=== PATIENT | female | born 1945 | race Caucasian/White ===

== ENCOUNTER → 2017-08-01 | Outpatient (CLI) | payer OTHER ==
[~2017-08-01] MED LIST: ANASTROZOLE1 MG PO; ARIMIDEX1 MG PO; ASA5UEC; ASPIR 8181 MG PO; ASPIRIN325 PO; AUGMENTIN 875875 MG PO; BRILINTA90 MG PO; CEFDINIR300 MG PO; CENTRUM SILVER1 EAC1 PO; CLEOCIN HCL300 MG PO; CRESTOR5 MG PO; DOXYCYCLINE 10100 M1 PO; FOSINOPRIL SODI40 M1 PO; HYDROCODON-ACE1 EAC7 PO; HYOSCYAMINE0.375 M2 PO; IMDUR 30 MG TAB30 M1 PO; LIMBITROL DS T1 EACH PO; LISINOPRIL10 MG PO; LISINOPRIL20 MG PO; LORTAB PO; MACROBID; MACROBID 100 M100 M1 PO; METAMUCIL FIBE3.4 GM PO; METAMUCIL197.2 GM PO; MIRALAX255 GM PO; NIACIN 500 MG500 M1 PO; NIASPAN 500 MG500 M1 PO; NORCO 5-325 TA1 EACH PO; OMEGA-31000 MG PO; PLAVIX 75 MG TA75 M1 PO; SYNTHROID50 MCG PO; TOPROL XL50 MG PO; ULTRAM 50MG TAB50 MG PO; VIGAMOX3 M1 OP; XANAX 0.25 MG0.25 MG PO; ZOFRAN4 MG PO
== END ==
LOC: RAD 10:15
DX: Z12.31 Encounter for screening mammogram for malignant neoplasm of breast (principal); M85.88 Other specified disorders of bone density and structure, other site; E28.39 Other primary ovarian failure; Z78.0 Asymptomatic menopausal state

== ENCOUNTER 2018-04-18 11:41 | Inpatient (IN) | payer OTHER ==
[2018-04-18] VITALS (9 sets, daily range): BP systolic 101–119; BP diastolic 69–81
[~2018-04-18] VITALS: Ht 167.6 cm; Wt 69.9 kg
--- NOTE | ~2018-04-18 | CATHLAB ---
[facility] [address] [place] [address] INVASIVE PROCEDURE REPORT Name: J CARLOS FIGUEROA Room #: 208-P [facility] IN [facility]#: [id number] Admission: 04/18/18 Attend Phys: Rodolfo Arnold, Discharge: Date of : 49 Date of Service: 04/18/18 1715 Report #: [id number] THIS REPORT FOR: //name// APPROVED REPORT Study performed: 04/18/2018 11:52:32 Patient Details Patient Status: In-Patient Room #: The patient is a 73 year-old female Event Personnel Rodolfo Arnold Principal Administrative Clerk, Dayana Armijo, Lashay Mccord RTR, Sony Castro Ceola RN lens matcher Performed Art Access - R femoral artery* 20531 Initial Mod Sed Same Phys/QHP Gr5y [id number] 06392 Mod Sed Same Phys/QHP Ea 725892 Left Heart Cath Coronaries, Bypass Grafts 0956177 LHCCORCABG ULI Place w/wo Plasty Single LAD 704535 Hemostasis w/ Mynx Indication Chest pain Procedure Narrative The patient was brought urgently to the Cardiac Catheterization Laboratory and was prepped and draped in a sterile manner. The Right Groin^ was infiltrated with 1% Lidocaine subcutaneous anesthesia. A PINNACLE 6FR Sheath #[id number] sheath was inserted into the RFA^. Coronary angiography was performed using coronary diagnostic catheters. The right coronary system was accessed and visualized with a JR 4 catheter. The left coronary system was accessed and visualized with a JL 4 catheter. The left ventricle was accessed and visualized with a Pigtail catheter. Left ventricular/Aortic Valve gradient assessed via catheter pullback. Left ventriculogram was performed in TONEY projection. Closure device was deployed with a 6 Fr Mynx. The patient tolerated the procedure well and there were no complications associated with the procedure. There was no hematoma. Intraoperative Conscious Sedation Sedation start time: 11:56 Case end Time: 13:14 Fentanyl 50 mcg Versed 2 mg Fluoro Time: 16.[address] [address] INVASIVE PROCEDURE REPORT Name: J CARLOS FIGUEROA [facility] Room #: 208-P [facility]#: [id number] Admission: 04/18/18 Attend Phys: Rodolfo Arnold, Discharge: Date of : 49 Date of Service: 04/18/18 1715 Report #: [id number] Dose: DAP 56211.00 cGycm2 1975 mGy Contrast Type and Amount: Visipaque 220 ml Coronary Angiography The patient's coronary anatomy is right dominant. Diagnostic Cath Left Main Normal left main LAD Severe 95% proximal LAD stenosis 85% mid LAD just after small to moderate size second diagonal branch Failed left internal mammary to the LAD Diagonal 1 Severe ostial D1 stenosis. Competitive filling was seen in the midportion of this vessel from a patent radial graft Patent radial artery from aorta to the first diagonal branch. Radial artery stent, osteal widely patent Diagonal 2 Small second diagonal branch, angiographically normal Circumflex Nondominant but large circumflex comprised of a single marginal branch Mild 10-20% ostial circumflex plaquing OM1 Minimal proximal OM1 plaquing Right Coronary The right coronary was large, dominant, and angiographically normal R PDA Large, normal posterior descending branch RPLV Moderate in size, angiographically normal posterior lateral branch Left Ventriculography The left ventricle is mildly dilated in size with abnormal contractility. The left ventricular ejection fraction is estimated to be 35%. Left ventricular wall motion abnormalities are present. There is no mitral insufficiency. Extensive anterolateral, apical, and inferoapical hypokinesis with left ventricular enlargement. Elevated left heart pressures. Hemodynamics The aortic pressure is 179/94 mmHg with a mean of 136 mmHg. The left ventricular pressure is 172/ mmHg with a mean of mmHg. The left ventricular end diastolic pressure is 26 mmHg. There was no gradient across the aortic valve upon pullback. PCI Technique Lesion Anticoagulation was achieved with Heparin, Integrilin. Patient was preloaded with Brillinta. Percutaneous coronary intervention was performed on the proximal left anterior descending artery segment. [facility] [address] [place] [address] INVASIVE PROCEDURE REPORT Name: J CARLOS FIGUEROA Room #: 208-P [facility] IN M.R.#: [id number] Admission: 04/18/18 Attend Phys: Rodolfo Arnold, Discharge: Date of : 49 Date of Service: 04/18/18 1715 Report #: [id number] The lesion stenosis prior to intervention was 95% with JEOVANNY 2 flow. A LAUNCHER 6FR EBU 3.5 #[id number] Guide Catheter was used to engage the left main ostium. A Luge Wire .014 x 182CM #[id number] Interventional Guidewire was used to cross the lesion. BALLOON DILATION A Balloon catheter Euphora RX 2.25 x 10 #[id number] was inserted and inflated up to 12.00atm for 35seconds. Repeat angiography revealed the following post-dilatation results: moderate residual mid and proximal LAD stenosis. Additional Inflation: 17.00atm for 25seconds. Additional Inflation: 18.00atm for 40seconds. STENT DEPLOYMENT A drug-eluting stent RESOLUTE GREG RX 2.5 X 34 #[id number] was inserted and inflated up to 15.00atm for 35seconds. Repeat angiography revealed the following post-stent deployment results: 0% residual, JEOVANNY III flow. POST STENT DEPLOYMENT BALLOON DILATION A Balloon catheter TREK NC RX 2.5 X 15 #[id number] was inserted and inflated up to 20.00atm for 31seconds. Additional Inflation: 22.00atm for 37seconds. Additional Inflation: 22.00atm for 26seconds. Final angiography reveals 0 % stenosis with JEOVANNY 3 flow. Conclusion 1. Moderately severe left ventricular dysfunction with anterolateral, apical, and inferoapical hypokinesis EF 30-35% 2. Normal left main 3. Severe proximal to mid LAD disease treated with stenting (2.5 x 34mm Resolute) post-dilated to 2.7mm 4. Failed WILKINSON to LAD, patent radial graft to D1 5. Mild plaquing in non-dominant circumflex 6. Normal, dominant RCA Recommendations Cardiac Rehabilitation Referral Aggressive Medical Therapy Medications Administered SANYA Inhibitor (any) Aspirin (any) Beta Osvaldo (any) Statin (any) [facility] [address] [place] [address] INVASIVE PROCEDURE REPORT Name: J CARLOS FIGUEROA Room #: 208-P ADM IN M.R.#: [id number] Admission: 04/18/18 Attend Phys: Rodolfo Arnold, Discharge: Date of : 49 Date of Service: 04/18/181714 Report #: [id number] Ticagrelor Cardiac Rehabilitation Referral <ELECTRONICALLY SIGNED> By: Rodolfo Arnold MD, FACC 04/18/181714 14 14 Rodolfo Arnold MD, FACC /INF
--- NOTE | ~2018-04-18 | H ---
[facility] [place] [address] HISTORY AND PHYSICAL Name: J CARLOS FIGUEROA Room #: 208-P ADM IN M.R.#: [id number] Admission: 04/18/18 Attend Phys: Rodolfo Arnold MD, Discharge: Date of : 49 Report #: [id number] THIS REPORT FOR: //name// CC: Rodolfo Welch REASON FOR ADMISSION: Myocardial infarction. HISTORY OF PRESENT ILLNESS: The patient is a 73-year-old woman with a history of remote bypass (2004) with a left internal mammary to the LAD and a radial artery to the diagonal branch. In 2008, she underwent medicated stenting of the ostium of the radial graft with a Promise medicated stent. In the past several weeks, she has had intermittent chest discomfort. She was seen in our office today, at which time a stress echo was performed. Pre-stress images were normal. Immediately after getting off the treadmill, she experienced midsternal chest discomfort and marked anterolateral ST elevation. She developed nonsustained ischemic, paroxysmal VT, specific therapy of which was not required. She was treated with aspirin, heparin as paramedics were being summoned. She was taken to urgently do coronary angiography at [facility]. She has ongoing pain with mild shortness of breath. She denies orthopnea or paroxysmal nocturnal dyspnea. ALLERGIES: She is allergic to CODEINE, LEVAQUIN, SULFA MEDICATIONS: Include alprazolam, aspirin, Limbitrol 5/12.5 mg 1 tablet at bedtime, fish oil, Levbid 0.375 mg every 12 hours as needed for cramping, Imdur 30 mg daily, levothyroxine 50 mcg daily, lisinopril 40 mg daily, Toprol-XL 50 mg daily, Crestor 5 mg daily. PAST MEDICAL HISTORY: Notable for breast cancer for which she received left chest radiation and chemotherapy, cystocele repair, hysterectomy, rectocele repair. SOCIAL HISTORY: She has never been a smoker. . FAMILY HISTORY: Notable for premature coronary artery disease. REVIEW OF SYSTEMS: All systems negative except as that noted above. PHYSICAL EXAMINATION: GENERAL: Reveals a pleasant woman in moderate distress. VITAL SIGNS: Blood pressure is 140/70, heart rate of 90 and regular, respirations unlabored at 18. HEENT: There are neither xanthelasma, subcutaneous xanthomata, oral mucosal or digital cyanosis or kyphoscoliosis present. CHEST: Clear to auscultation and percussion. CARDIAC: Reveals regular rate and rhythm with a normal S1 and distant heart [address] [address] HISTORY AND PHYSICAL Name: J CARLOS FIGUEROAYE Room #: 208-P [facility] IN M.R.#: [id number] Admission: 04/18/18 Attend Phys: Rodolfo Arnold MD, Discharge: Date of : 49 Report #: [id number]. ABDOMEN: Soft and nontender. EXTREMITIES: Without cyanosis, clubbing or edema. Radial pulses are 2+. NEUROLOGIC: She is alert with a nonfocal exam. LABORATORY DATA: EKG sinus rhythm with high lateral injury pattern, frequent polymorphic ventricular ectopy. Sodium 141, potassium 3.9, creatinine 0.8, troponin 1.03. Hemoglobin 13.6, platelet count 182. IMPRESSION: 1. Acute anterolateral myocardial infarction. 2. Acute systolic heart failure. 3. Hypertension. 4. Paroxysmal, ischemic ventricular tachycardia. 5. Dyslipidemia. 6. Breast cancer with radiation therapy and chemotherapy remotely. 7. Carotid stenosis. RECOMMENDATIONS: 1. Coordinated care with EMS, Emergency Room and laborer/key man for urgent coronary angiography. This procedure was discussed in detail including its associated risks as well as the risks associated with a probable percutaneous intervention. Questions were answered. She is agreeable to proceeding. 2. No contraindications to dual antiplatelet therapy. Critical care time 11:05-12:07. <ELECTRONICALLY SIGNED> By: Rodolfo Arnold MD, FACC 04/19/18 0906 1403 1447 Rodolfo Arnold MD, FACC /nt
--- NOTE | ~2018-04-18 | D ---
[facility] [place] [address] DISCHARGE SUMMARY Name: J CARLOS FIGUEROA Room #: 208-P [facility] IN M.R.#: [id number] Admission: 04/18/18 Attend Phys: Rodolfo Arnold MD, Discharge: 04/20/18 Date of : 49 Report #: [id number] THIS REPORT FOR: //name// CC: Rodolfo Welch MD DISCHARGE DIAGNOSES: 1. Acute anterolateral myocardial infarction interrupted by stenting of the proximal left anterior descending artery (2.5 x 34 mm Resolute Homer stent). 2. Acute systolic heart failure. 3. Hypertension. 4. Paroxysmal, ischemic ventricular tachycardia. 5. Dyslipidemia. 6. Breast cancer with left chest radiation therapy and chemotherapy. 7. Carotid stenosis, asymptomatic. 8. Remote 2-vessel bypass with failed left internal mammary to the left anterior descending artery, patent radial artery to the diagonal branch. HISTORY OF PRESENT ILLNESS: For the complete details of the history of present illness, see dictated history and physical. Briefly, the patient is a 73-year-old woman with a history of remote 2-vessel bypass in 2004. During a stress test in our office, she developed anterolateral ST segment elevation and was taken urgently to coronary angiography. HOSPITAL COURSE: The patient was admitted and taken urgently to angiography, which demonstrated occlusion of the mammary graft to the LAD, severe proximal and mid LAD disease was present, which was stented with a 2.5 x 34 mm Resolute Homer stent postdilated to 2.7 mm. The mammary graft had an appearance that would suggest maybe radiation injury. In the infarct setting, she had nonsustained ischemic paroxysmal polymorphic ventricular tachycardia, specific therapy of which was not required. She had mild systolic heart failure with an elevated LVEDP of 35 mm. The peak troponin was 10.8. EKG demonstrated no acute ST or T-wave changes with early R-wave progression. Lipids were recently checked in our office with an LDL of 107, total cholesterol 200. She has been intolerant to several statins, although seems to be doing well with rosuvastatin. She was ambulating and pain free at the time of discharge. Discharge medicines were reconciled. DISCHARGE DIET: Heart healthy. DISCHARGE INSTRUCTIONS: Arrangements were made for outpatient cardiac rehabilitation. DISCHARGE MEDICATIONS: Aspirin 81 mg daily, Crestor 5 mg daily, levothyroxine 50 mcg daily, lisinopril 10 mg daily, Toprol-XL 50 mg daily, ticagrelor 90 mg twice daily, Xanax as needed, lisinopril [address] [address] DISCHARGE SUMMARY Name: JC ARLOS FIGUEROA Room #: 208-P [facility]..#: [id number] Admission: 04/18/18 Attend Phys: Rodolfo Arnold MD, Discharge: 04/20/18 Date of : 49 Report #: [id number] DISCHARGE ACTIVITIES: As instructed. DISCHARGE CONDITION: Stable and improved. By: 0804 [id number] Rodolfo Arnold MD, [facility] /nt
--- NOTE | ~2018-04-18 | EKG ---
[address] [place] [address] ELECTROCARDIOGRAM REPORT Name: J CARLOS FIGUEROA Room #: 208-P ADM IN M.R.#: [id number] Admission: 04/18/18 Attend Phys: Rodolfo Arnold MD, Discharge: Date of : 49 Report #: [id number] THIS REPORT FOR: //name// [facility] Test Date: 2018-04-19 Test Time: 07:04:37 Pat Name: J CARLOS FIGUEROA Department: Room: 208 P Gender: F Historic Preservationist: MEHREEN : 1945 Requested By: Rodolfo Arnold Order Number: [id number] MD: Rodolfo Arnold Measurements Intervals [place] Rate: 90 P: 35 ND: 158 QRS: 10 QRSD: 101 T: 34 QT: 356 QTc: 436 Interpretive Statements Sinus rhythm Low voltage, precordial leads Abnormal R-wave progression, early transition Compared to ECG 10/25/2015 08:47:50 No significant change was found Electronically Signed On 04-19-2018 8:55:55 CDT by Rodolfo Arnold [email or web address] <ELECTRONICALLY SIGNED> By: Rodolfo Arnold MD, [facility] 04/19/18 0855 0704 0704 Rodolfo Arnold MD, [facility] /EPI
--- NOTE | ~2018-04-18 | EKG ---
[address] [place] [address] ELECTROCARDIOGRAM REPORT Name: J CARLOS FIGUEROA Room #: 208-P ADM IN M.R.#: [id number] Admission: 04/18/18 Attend Phys: Rodolfo Arnold MD, Discharge: Date of : 49 Report #: [id number] THIS REPORT FOR: //name// [facility] Test Date: 2018-04-18 Test Time: 14:23:16 Pat Name: J CARLOS FIGUEROA Department: Room: 208 Gender: F Cloak Room Attendant: Nikki GIBSON : 1945 Requested By: Rodolfo Arnold Order Number: [id number] MD: Rodolfo Arnold Measurements Intervals [place] Rate: 84 P: 38 [place]: 147 QRS: -35 QRSD: 76 T: 37 QT: 352 QTc: 417 Interpretive Statements Sinus rhythm Left axis deviation Abnormal R-wave progression, late transition Borderline ST elevation, lateral leads Compared to ECG 10/25/2015 08:47:50 Right ventricular conduction delay is no longer present borderline lateral ST segment elevation is now present Electronically Signed On 04-19-2018 8:47:25 CDT by Rodolfo Arnold [email or web address] <ELECTRONICALLY SIGNED> By: Rodolfo Arnold MD, [facility] 04/19/18 0847 1423 1423 Rodolfo Arnold MD, [facility] /EPI
[~2018-04-18 11:41] MED LIST changes: -ASPIR 8181 MG PO; -BRILINTA90 MG PO; -LIMBITROL DS T1 EACH PO; -LISINOPRIL10 MG PO; -LISINOPRIL20 MG PO; -PLAVIX 75 MG TA75 M1 PO; -XANAX 0.25 MG0.25 MG PO
[2018-04-18 12:23] LABS: HEMATOCRIT 38.8 % (37.0-47.0); HEMOGLOBIN 13.6 gm/dL (12.0-15.0); MCH 30.3 pg (26.0-34.0); MCV 86.7 fL (80.0-100.0); RBC 4.47 mil/uL (4.20-5.00); RDW 13.3 % (10.5-14.5); WBC 5.3 thou/uL (4.0-11.0)
[2018-04-18 12:37] LABS: CALCIUM 9.6 mg/dL (8.5-10.1); CREATININE 0.8 mg/dL (0.6-1.0); POTASSIUM 3.9 mmol/L (3.5-5.1)
[2018-04-18 12:48] LABS: TROPONIN-I 1.03 ng/mL (<0.06)
[2018-04-18 13:11] LABS: INR 1.1; PROTIME 11.1 Seconds (9.3-11.4)
[2018-04-19 00:01] VITALS: BP 98/66
[2018-04-19 03:55] LABS: HEMATOCRIT 31.3 % (37.0-47.0); MCH 30.8 pg (26.0-34.0); MCHC 35.4 g/dL (28.0-37.0); RBC 3.6 mil/uL (4.20-5.00); RDW 13.7 % (10.5-14.5); WBC 10.3 thou/uL (4.0-11.0)
[2018-04-19 04:02] LABS: HEMOGLOBIN 11.1 gm/dL (12.0-15.0)
[2018-04-19 04:06] LABS: ALBUMIN 3.1 g/dL (3.4-5.0); ANION GAP 12 mmol/L (7-16); BUN 13 mg/dL (7-18); CALCIUM 9.1 mg/dL (8.5-10.1); CHLORIDE 109 mmol/L (98-107); CHOLESTEROL 151 mg/dL (<200); CO2 21 mmol/L (21-32); CREATININE 0.8 mg/dL (0.6-1.0); GLUCOSE 117 mg/dL (74-106); HDL CHOLESTEROL 45 mg/dL (>40); LDL CHOLESTEROL 82 mg/dL (<100); POTASSIUM 3.7 mmol/L (3.5-5.1); SERUM ASSESSMENT Clear; SGOT 50 U/L (15-37); SGPT 24 U/L (30-65); SODIUM 142 mmol/L (136-145); TC:HDL 3.4 Ratio (Not establshd); TOTAL BILIRUBIN 0.5 mg/dL (<0.1-1.0); TOTAL PROTEIN 5.7 g/dL (6.4-8.2); TRIGLYCERIDE 121 mg/dL (<150); VLDL 24 mg/dL (<40)
[2018-04-19 04:08] LABS: TROPONIN-I 10.81 ng/mL (<0.06)
[2018-04-19 05:14] VITALS: BP 91/58
[2018-04-19 07:44] VITALS: BP 101/67
[2018-04-19] MEDS ORDERED: LISINOPRIL20 MG PO (10:48)
[2018-04-19] MEDS ORDERED: LIMBITROL DS T1 EACH PO (10:49)
[2018-04-19] MEDS ORDERED: XANAX 0.25 MG0.25 MG PO (10:49)
[2018-04-19 16:21] VITALS: BP 91/57
[2018-04-19 19:34] VITALS: BP 100/61
[2018-04-20 04:14] VITALS: BP 98/60
[2018-04-20] MEDS ORDERED: ASPIR 8181 MG PO (07:55)
[2018-04-20] MEDS ORDERED: LISINOPRIL10 MG PO (07:55)
[2018-04-20] MEDS ORDERED: BRILINTA90 MG PO (07:55)
[2018-04-20 08:00] VITALS: BP 98/60
[2018-04-20 09:17] VITALS: BP 98/60
[2018-04-20 09:31] VITALS: BP 98/60
[2018-04-20] MEDS ORDERED: PLAVIX 75 MG TA75 M1 PO (10:03)
[2018-04-20 10:14] VITALS: BP 98/60
== END 2018-04-20 12:52 | disposition home or self-care (01) | DRG 246 ==
LOC: ER 11:41 → EDSTATUS 11:51 → CATH 11:58 → 2N 14:30 → ENTRNSPT 04-20 12:26 → 2N 04-20 12:52
PROVIDERS: Internal Medicine
PROC: B218YZZ Fluoroscopy of Left Internal Mammary Bypass Graft using Other Contrast (ICD-10-PCS; principal; 2018-04-18)
PROC: 027034Z Dilation of Coronary Artery, One Artery with Drug-eluting Intraluminal Device, Percutaneous Approach (ICD-10-PCS; principal; 2018-04-18)
PROC: 4A023N7 Measurement of Cardiac Sampling and Pressure, Left Heart, Percutaneous Approach (ICD-10-PCS; principal; 2018-04-18)
PROC: B215YZZ Fluoroscopy of Left Heart using Other Contrast (ICD-10-PCS; principal; 2018-04-18)
PROC: B211YZZ Fluoroscopy of Multiple Coronary Arteries using Other Contrast (ICD-10-PCS; principal; 2018-04-18)
DX: I21.09 ST elevation (STEMI) myocardial infarction involving other coronary artery of anterior wall (principal); I50.21 Acute systolic (congestive) heart failure; I47.2 Ventricular tachycardia; I11.0 Hypertensive heart disease with heart failure; E78.5 Hyperlipidemia, unspecified; I25.5 Ischemic cardiomyopathy; I65.29 Occlusion and stenosis of unspecified carotid artery; Z95.1 Presence of aortocoronary bypass graft; Z88.6 Allergy status to analgesic agent; Z88.2 Allergy status to sulfonamides; Z88.8 Allergy status to other drugs, medicaments and biological substances; Z90.710 Acquired absence of both cervix and uterus; Z82.49 Family history of ischemic heart disease and other diseases of the circulatory system
CPT/HCPCS: 10081

== ENCOUNTER 2018-05-17 04:09 | Emergency (ER) | payer OTHER ==
[~2018-05-17] VITALS: Ht 167.6 cm; Wt 68.0 kg
--- NOTE | ~2018-05-17 | EKG ---
[address] [address] ELECTROCARDIOGRAM REPORT Name: J CARLOS FIGUEROA [id number] Admission: 05/17/18 Attend Phys: Discharge: 05/17/18 Date of : 49 Report #: [id number] THIS REPORT FOR: //name// [facility] ED Test Date: 2018-05-17 Test Time: 04:16:45 Pat Name: J CARLOS FIGUEROA Department: Room: Gender: F Computer Specialist: ANNMARIE : 1945 Requested By: Aftab David Order Number: [id number] MD: Alejandro Child Measurements Intervals [place] Rate: 82 P: 47 [place]: 171 QRS: 9 QRSD: 112 T: 97 QT: 356 QTc: 416 Interpretive Statements Sinus rhythm Abnormal R-wave progression, early transition Compared to ECG 04/19/2018 07:04:37 Electronically Signed On 05-17-2018 14:23:56 CONSUMER [employer]ENDER by Alejandro Child [email or web address] <ELECTRONICALLY SIGNED> By: Alejandro Child MD 05/17/18 1423 0416 0416 Alejandro Child MD /DANIELLE
[~2018-05-17 04:09] MED LIST changes: +ASPIR 8181 MG PO; +BRILINTA90 MG PO; +LIMBITROL DS T1 EACH PO; +LISINOPRIL10 MG PO; +LISINOPRIL20 MG PO; +PLAVIX 75 MG TA75 M1 PO; +XANAX 0.25 MG0.25 MG PO
[2018-05-17 04:30] LABS: ABSOLUTE NEUTROPHILS 4.4 thou/uL (1.4-8.2); BASOPHILS 0.6 % (0.0-2.0); EOSINOPHILS 3.2 % (0.0-3.0); HEMATOCRIT 40.6 % (37.0-47.0); HEMOGLOBIN 13.6 gm/dL (12.0-15.0); LYMPHOCYTES 20.9 % (24.0-44.0); MCH 29.7 pg (26.0-34.0); MCHC 33.4 g/dL (28.0-37.0); MCV 89.1 fL (80.0-100.0); MONOCYTES 7.4 % (1.0-8.0); PLATELET COUNT 163 thou/uL (150-400); POLYS 67.9 % (36.0-66.0); RBC 4.56 mil/uL (4.20-5.00); RDW 14.6 % (10.5-14.5); WBC 6.4 thou/uL (4.0-11.0)
[2018-05-17 04:33] LABS: ANION GAP 10 mmol/L (7-16); BUN 13 mg/dL (7-18); CALCIUM 10.2 mg/dL (8.5-10.1); CHLORIDE 102 mmol/L (98-107); CO2 26 mmol/L (21-32); CREATININE 0.9 mg/dL (0.6-1.0); GLUCOSE 108 mg/dL (74-106); POTASSIUM 3.5 mmol/L (3.5-5.1); SODIUM 138 mmol/L (136-145)
[2018-05-17 04:42] LABS: TROPONIN-I <0.06 ng/mL (<0.06)
[2018-05-17 06:01] VITALS: BP 121/63
== END 2018-05-17 06:08 | disposition home or self-care (01) ==
LOC: ER 04:09
PROVIDERS: Emergency Medicine
DX: R07.89 Other chest pain (principal); I10 Essential (primary) hypertension; Z88.5 Allergy status to narcotic agent; Z88.1 Allergy status to other antibiotic agents; Z88.2 Allergy status to sulfonamides; Z95.5 Presence of coronary angioplasty implant and graft; Z85.3 Personal history of malignant neoplasm of breast; Z90.12 Acquired absence of left breast and nipple; Z90.710 Acquired absence of both cervix and uterus

== ENCOUNTER → 2018-08-28 | Outpatient (CLI) | payer OTHER | LOC: RAD 01:41 | DX: Z12.31 Encounter for screening mammogram for malignant neoplasm of breast (principal); Z85.3 Personal history of malignant neoplasm of breast; Z98.890 Other specified postprocedural states; Z92.3 Personal history of irradiation ==

== ENCOUNTER → 2019-02-27 | Outpatient (CLI) | payer OTHER ==
--- NOTE | ~2019-02-27 | PFR/MVV ---
[facility] [place] [address] PULMONARY FUNCTION MVV/REPORT Name: HENRYPHILYULI MEAGHAN Room #: [facility]#: [id number] ������������������ Admission: 02/27/19 ������������������ Attend Phys: Ean Welch MD Discharge: ������������������ Date of : 49 Report #: [id number] THIS REPORT FOR: //name// >> SPIROMETRY: (BTPS) Height: in cm Weight: lbs kg Exam Date: PRE-RX POST-RX PRED BEST %PRED BEST %PRED %CHG FVC LITERS . . . . . . FEV1 LITERS . . . . . . FEV1/FVC % . . . . . . NED95-97% L/Sec . . . . . . PEF L/SEC . . . . . . FEF50/FIF50 UNITLESS . . . . . . MVV L/Min . . . f 1/Min . . . >> LUNG VOLUMES: (BTPS) PRE-RX POST-RX PRED AVG %PRED AVG %PRED %CHG VC Liters . . . . . . TLC Liters . . . . . . RV Liters . . . . . . RV/TLC % . . . . . . FRC PL Liters . . . . . . FRC N2 Liters . . . . . . ERV Liters . . . . . . IC Liters . . . . . . >> DIFFUSION: DLCO ml/Min/mmHg . . . . . . DL Phong ml/Min/mmHg . . . . . . DLCO/VA ml/Min/mmHg . . . . . . VA Liters . . . . . . COMMENTS: COMMENTS: >> RESISTANCE: [facility] [address] [place] [address] PULMONARY FUNCTION MVV/REPORT Name: J CARLOS FIGUEROA Room #: [facility]#: [id number] ������������������ Admission: 02/27/19 ������������������ Attend Phys: Ean Welch MD Discharge: ������������������ Date of : 49 Report #: [id number] PRE-RX PRED AVG %PRED Raw Total cmH20/L/Sec . . . Raw Insp cmH20/L/Sec . . . Raw Exp cmH20/L/Sec . . . Raw cmH20/L/Sec . . . Gaw L/Sec/cmH20 . . . sRaw cmH20 Sec . . . sGaw l/cmH20 Sec . . . Vtq Liters . . . # = OUTSIDE 95% CONFIDENCE INTERVAL CALIBRATION: PRED: 3.00 ACTUAL: EXP 3.01 INSP 3.02 [facility]-OL03-24 [facility] N-1804-4 >> INTERPRETATION/IMPRESSION: CC: Ean Welch DATE OF SERVICE: 02/27/2019 SPIROMETRY: FEV1 is 3.08 liters (138%), FVC is 4.22 liters (135%), FEV1/FVC ratio is 73%. Post-bronchodilator therapy with an intermediate response FEV1 increased to 4.62 liters (10% change). LUNG VOLUMES: Total lung capacity is 6.05 liters (112%). Diffusing capacity is 88%. IMPRESSION: Pulmonary function studies are consistent with essentially normal pulmonary function. A borderline decreased FEV1/FVC ratio is likely a physiologic variant with her FEV1 and FVC both 138% and 135% respectively. Diffusing capacity is normal. ��������������������������������������������� ���������������������������������������� By: ��������������������������������������������� Herber Morgan MD /nt
== END ==
LOC: PUL 09:42
DX: R06.00 Dyspnea, unspecified (principal); Z79.899 Other long term (current) drug therapy

== ENCOUNTER → 2019-08-20 | Outpatient (CLI) | payer OTHER | LOC: SJCVC 13:21 | DX: I45.10 Unspecified right bundle-branch block (principal); I25.10 Atherosclerotic heart disease of native coronary artery without angina pectoris; E78.5 Hyperlipidemia, unspecified; I10 Essential (primary) hypertension; E03.9 Hypothyroidism, unspecified; E78.00 Pure hypercholesterolemia, unspecified; F41.9 Anxiety disorder, unspecified; I25.2 Old myocardial infarction; Z90.49 Acquired absence of other specified parts of digestive tract; Z95.1 Presence of aortocoronary bypass graft; Z90.710 Acquired absence of both cervix and uterus; Z79.82 Long term (current) use of aspirin; Z79.899 Other long term (current) drug therapy ==

== ENCOUNTER → 2019-11-13 | Outpatient (CLI) | payer OTHER | LOC: ULTRA 08:18 | PROVIDERS: ATTEND Nurse Practitioner Obstetrics & Gynecology | DX: Z12.31 Encounter for screening mammogram for malignant neoplasm of breast (principal); N64.89 Other specified disorders of breast ==

== ENCOUNTER → 2020-02-20 | Outpatient (CLI) | payer OTHER | LOC: SJCVCIMAG 07:06 | PROVIDERS: ATTEND Internal Medicine | DX: I25.10 Atherosclerotic heart disease of native coronary artery without angina pectoris (principal); R00.0 Tachycardia, unspecified; I25.2 Old myocardial infarction; E78.5 Hyperlipidemia, unspecified; I10 Essential (primary) hypertension; Z95.1 Presence of aortocoronary bypass graft; Z95.5 Presence of coronary angioplasty implant and graft; Z79.899 Other long term (current) drug therapy ==

== ENCOUNTER → 2020-09-01 | Outpatient (CLI) | payer OTHER | LOC: SJCVC 09:45 | PROVIDERS: ATTEND Internal Medicine | DX: I45.10 Unspecified right bundle-branch block (principal); R94.31 Abnormal electrocardiogram [ECG] [EKG]; I25.10 Atherosclerotic heart disease of native coronary artery without angina pectoris; I11.0 Hypertensive heart disease with heart failure; I50.21 Acute systolic (congestive) heart failure; I65.23 Occlusion and stenosis of bilateral carotid arteries; E78.5 Hyperlipidemia, unspecified; Z95.1 Presence of aortocoronary bypass graft; Z79.82 Long term (current) use of aspirin; Z79.899 Other long term (current) drug therapy; Z88.2 Allergy status to sulfonamides; Z88.5 Allergy status to narcotic agent; Z88.8 Allergy status to other drugs, medicaments and biological substances ==

== ENCOUNTER → 2020-11-24 | Outpatient (CLI) | payer OTHER | LOC: CAT 13:05 | PROVIDERS: ATTEND Family Medicine | DX: K57.30 Diverticulosis of large intestine without perforation or abscess without bleeding (principal); R10.84 Generalized abdominal pain ==

== ENCOUNTER → 2020-11-27 | Outpatient (CLI) | payer OTHER | LOC: BC 10-21 10:43 | PROVIDERS: ATTEND Nurse Practitioner Obstetrics & Gynecology | DX: Z12.31 Encounter for screening mammogram for malignant neoplasm of breast (principal); N64.89 Other specified disorders of breast ==

== ENCOUNTER → 2021-03-10 | Outpatient (CLI) | payer OTHER | LOC: SJCVCIMAG 07:25 | PROVIDERS: ATTEND Internal Medicine | DX: I45.10 Unspecified right bundle-branch block (principal); I65.23 Occlusion and stenosis of bilateral carotid arteries; I25.10 Atherosclerotic heart disease of native coronary artery without angina pectoris; E78.5 Hyperlipidemia, unspecified; I48.0 Paroxysmal atrial fibrillation; I11.0 Hypertensive heart disease with heart failure; I50.21 Acute systolic (congestive) heart failure; Z79.82 Long term (current) use of aspirin; Z79.899 Other long term (current) drug therapy; Z95.1 Presence of aortocoronary bypass graft; Z88.5 Allergy status to narcotic agent; Z88.2 Allergy status to sulfonamides; Z88.8 Allergy status to other drugs, medicaments and biological substances ==